=== PATIENT | female | born 1940 | race Caucasian/White ===

== ENCOUNTER → 2017-08-14 | Outpatient (CLI) | payer MEDICARE, MEDICAID | LOC: M RAD 09:35 | DX: N18.3 Chronic kidney disease, stage 3 (moderate) (principal); N28.1 Cyst of kidney, acquired; N26.1 Atrophy of kidney (terminal) | CPT/HCPCS: 76775 ==

== ENCOUNTER → 2017-12-04 | Outpatient (CLI) | payer MEDICARE, MEDICAID | LOC: M RAD 12:32 | DX: R93.41 Abnormal radiologic findings on diagnostic imaging of renal pelvis, ureter, or bladder (principal); N27.0 Small kidney, unilateral; N18.3 Chronic kidney disease, stage 3 (moderate) | CPT/HCPCS: 78707 ==

== ENCOUNTER → 2018-04-08 | Outpatient (REF) | payer MEDICARE, MEDICAID ==
[2018-04-08 19:48] LABS: FREE T4 0.94 NG/DL (0.76-1.46)
== END ==
LOC: M LAB REF 17:32
DX: E03.9 Hypothyroidism, unspecified (principal)
CPT/HCPCS: 84443